=== PATIENT | female | born 1975 | race Caucasian/White ===

== ENCOUNTER 2024-11-13 10:27 | Emergency (ER) | payer SELFPAY ==
[2024-11-13] VITALS (10 sets, daily range): BP systolic 103–127; BP diastolic 73–82; PULSE 87–107; TEMP 37.1; O2SAT 91–95; BMI 26.6
--- NOTE | 2024-11-13 10:49 | ECG_ITS ---
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 Measurements Intervals [place] Rate: 109 P: 50 TX: 140 QRS: 35 QRSD: 84 T: 30 QT: 318 QTc: 382 Interpretive Statements 1120 Sinus tachycardia 1570 with occasional ventricular premature complexes 3113 Cannot rule out anterior myocardial infarction, probably old 9150 abnormal ECG Compared to ECG 11/13/2024 10:59:18 Ventricular premature complex(es) now present Myocardial infarct finding still present Electronically Signed On 11-13-2024 19:44:12 EDT by NIGEL CHARLES M.D.
--- NOTE | 2024-11-13 10:50 | ED.GENADUL1 ---
HPI HPI - General Adult General Chief complaint: Weakness Stated complaint: WEAKNESS LIGHTHEADED Time Seen by Provider: 11/13/24 10:41 Source: patient Mode of arrival: walk-in Limitations: no limitations History of Present Illness HPI narrative: 49-year-old female presents for weakness and slight cough and poor appetite. She has felt this way for about 5 days. She has not checked her temperature and is not coughing up any phlegm. She has not had much of an appetite and has not been drinking much fluids. She does not complain of any specific pain. Related Data Home Medications ?Medication ?Instructions ?Recorded ?Confirmed No Known Home Medications 11/13/24 11/13/24 Allergies Allergy/AdvReac Type Severity Reaction Status Date / Time No Known Drug Allergies Allergy Verified 11/13/24 12:12 Review of Systems ROS Narrative A ten point review of systems is negative except as noted above. PFSH PFSH Social History Little interest or pleasure in doing things: not at all Feeling down, depressed, or hopeless: not at all Exam Narrative Exam Narrative: Nurses note and vital signs reviewed and patient is not hypoxic. General: The patient appears in no apparent distress. Patient is resting comfortably on cart. Skin: Warm, dry, no pallor noted. There is no rash noted. Head: Normocephalic, atraumatic Eye: Normal conjunctiva, no drainage Ears, Nose, Mouth, and Throat: oral mucosa is moist. Nares patent. Cardiovascular: Regular Rate and Rhythm Respiratory: Patient is in no distress, no accessory muscle use, lungs are clear to auscultation, no wheezing, rales or rhonchi Back: non-tender GI: Soft and nontender Musculoskeletal: The patient has no evidence of calf tenderness, no pitting edema, symmetrical pulses noted bilaterally Neurological: A&O, normal speech. She has a tremor which she has had since childhood. Psychiatric: Cooperative Constitutional Vital Signs, click to edit/add: Last Vital Signs Temp 98.8 F 11/13/24 10:34 Pulse 87 11/13/24 13:03 Resp 18 11/13/24 13:03 BP 103/73 11/13/24 13:03 Pulse Ox 91 L 11/13/24 13:03 Course Vital Signs Vital signs: Vital Signs Temperature 98.8 F 11/13/24 10:34 Pulse Rate 100 H 11/13/24 10:34 Respiratory Rate 20 11/13/24 10:34 Blood Pressure 127/82 11/13/24 10:34 Pulse Oximetry 95 11/13/24 10:34 Temperature 98.8 F 11/13/24 10:34 Pulse Rate 87 11/13/24 13:03 Respiratory Rate 18 11/13/24 13:03 Blood Pressure 103/73 11/13/24 13:03 Pulse Oximetry 91 L 11/13/24 13:03 Medical Decision Making MDM Narrative Medical decision making narrative: Her workup indicates a large number of atypical lymphocytes and this has been sent off to be reviewed by pathology. I spoke to Dr. Espinal and at his request I have ordered flow cytometry and peripheral smear and LDH. She will follow-up with him on November 18 and she will call that office today to determine the time. Differential Diagnosis Differential Diagnosis: Dehydration, anemia, blood dyscrasia Lab Data Lab results reviewed: Yes I reviewed the patient's lab results Labs: Lab Results 11/13/24 11/13/24 11/13/24 Range/Units 11:05 11:07 11:53 WBC 13.8 H (4.0-11.0) 10^3/uL RBC 4.66 (4.20-5.40) 10^6/uL Hgb 14.6 (12.0-16.0) g/dL Hct 43.0 (36.0-48.0) % MCV 92.3 (81.0-99.0) fL MCH 31.3 (26.7-34.0) pg MCHC 34.0 (29.9-35.2) g/dL RDW 14.6 (11.0-15.0) % Plt Count 191 (150-450) 10^3/uL MPV 10.3 (9.5-13.5) fL Seg Neuts % (Manual) 34.0 L (43.0-75.0) Lymphocytes % (Manual) 31.0 (20.5-60.0) % Atypical Lymphs % (Man) 29.0 % Monocytes % (Manual) 4.0 (1.7-12.0) % Eosinophils % (Manual) 0.0 L (0.9-7.0) % Basophils % (Manual) 1.0 (0.2-2.0) % Neutrophils # (Manual) 4.69 (1.4-6.5) 10^3/uL Lymphocytes # (Manual) 4.27 H (1.20-3.80) 10^3/uL Abs Atypical Lymphs Man 4.00 Monocytes # (Manual) 0.55 (0.30-0.80) 10^3/uL Eosinophils # (Manual) 0.00 (0.00-0.70) 10^3/uL Basophils # (Manual) 0.13 H (0.00-0.10) 10^3/uL Differential Comment Smudge Cells Seen Sodium 135 L (136-145) mmol/L Potassium 3.5 (3.5-5.1) mmol/L Chloride 99 (98-107) mmol/L Carbon Dioxide 28.1 (21.0-32.0) mmol/L Anion Gap 11.4 BUN 11.0 (7.0-18.0) mg/dL Creatinine 1.06 H (0.55-1.02) mg/dL Est GFR ( Amer) >60 (>=60 mL/min/1.73m^2) Est GFR (Non-Af Amer) 55 L (>=60 mL/min/1.73m^2) BUN/Creatinine Ratio 10.4 Glucose 142 H (74-106) mg/dL Calcium 8.6 (8.5-10.1) mg/dL Urine Color Dk yellow (YELLOW) Urine Clarity Sl cloudy (CLEAR) Urine pH 6.0 (5.0-9.0) Ur Specific [place] 1.025 (1.005-1.025) Urine Protein 30 A (NEG/TRACE) mg/dL Urine Glucose (UA) Negative (NEGATIVE) mg/dL Urine Ketones Trace A (NEGATIVE) mg/dL Urine Occult Blood Negative (NEGATIVE) Urine Nitrite Negative (NEGATIVE) Urine Bilirubin Moderate A (NEGATIVE) Urine Urobilinogen 1.0 (0.2-1.0) EU/dL Ur Leukocyte Esterase Negative (NEGATIVE) Urine RBC 0-2 (0-2) #/HPF Urine WBC 0-2 A (NONE SEEN) #/HPF Ur Squamous Epith Cells Moderate A (NONE/RARE) #/LPF Urine Crystals None seen (None Seen) #/HPF Urine Bacteria Trace A (NONE SEEN) #/HPF Urine Casts Seen A (NONE SEEN) #/LPF Hyaline Casts Few Urine Mucus Moderate A (NONE SEEN) Influenza Type A Ag Negative Influenza Type B Ag Negative SARS-CoV-2 Ag (CV2AG) Negative (NEGATIVE) Imaging Data Chest x-ray: Radiologist's impression: No acute process ECG Data Attestation: I personally reviewed and interpreted this ECG as follows: (EKG on my interpretation shows sinus tachycardia with a rate of 109 and a PVC) Discharge Plan Discharge Chief Complaint: Weakness Clinical Impression: Generalized weakness Patient Disposition: Home, Self-Care Time of Disposition Decision: 13:29 Condition: Good Mode of Transportation: Private Vehicle Prescriptions / Home Meds: No Action No Known Home Medications Print Language: Kyrgyz Instructions: Weakness (ED) Additional Instructions: Call the office of Dr. Espinal today. He will see you on November 18. Referrals: Esther Espinal MD [Physician] - 11/18/24 Referral Note: Abnormal differential Clinical Impression: Generalized weakness Physician,Non-Staff, [Primary Care Provider] - 1 week
[2024-11-13] MEDS: ONDANSETRON PF 4 MG/2 ML VIAL IV (11:12)
[2024-11-13] MEDS: 0.9 % SODIUM CHLORIDE 1,000 ML 1000 ML IV (11:12)
[2024-11-13 11:25] LABS: Hemoglobin 14.6 g/dL (12.0-16.0); Mean Corpuscular Hemoglobin 31.3 pg (26.7-34.0); Mean Corpuscular Volume 92.3 fL (81.0-99.0); Mean Platelet Volume 10.3 fL (9.5-13.5); Platelet Count 191 10^3/uL (150-450); Red Blood Count 4.66 10^6/uL (4.20-5.40); Red Cell Distribution Width 14.6 % (11.0-15.0); White Blood Count 13.8 10^3/uL (4.0-11.0)
[2024-11-13 11:35] LABS: Influenza Virus A Antigen Negative; Influenza Virus B Antigen Negative; Internal Control Within Normal Limits; SARS-CoV-2 Ag NEGATIVE (NEGATIVE)
[2024-11-13 11:38] LABS: Anion Gap 11.4; BUN Creatinine Ratio 10.4; Calcium 8.6 mg/dL (8.5-10.1); Carbon Dioxide 28.1 mmol/L (21.0-32.0); Chloride 99 mmol/L (98-107); Estimated GFR (African America >60 (>=60 mL/min/1.73m^2); Estimated GFR (Non-African Ame 55 (>=60 mL/min/1.73m^2); Glucose 142 mg/dL (74-106); Potassium 3.5 mmol/L (3.5-5.1); Sodium 135 mmol/L (136-145)
[2024-11-13 12:03] LABS: Bilirubin Urine MODERATE (NEGATIVE); Blood Urine NEGATIVE (NEGATIVE); Clarity Urine SL CLOUDY (CLEAR); Glucose Urine UA NEGATIVE (NEGATIVE); Ketones Urine TRACE mg/dL (NEGATIVE); Leukocyte Esterase Urine NEGATIVE (NEGATIVE); Nitrite Urine NEGATIVE (NEGATIVE); Protein Urine 30 mg/dL (NEG/TRACE); Specific Gravity Urine 1.025 (1.005-1.025)
[2024-11-13 12:04] LABS: Lymphocytes Absolute Manual 4.27 10^3/uL (1.20-3.80); Monocytes Absolute Manual 0.55 10^3/uL (0.30-0.80); Segmented Neut Absolute Manual 4.69 10^3/uL (1.4-6.5)
[2024-11-13 12:05] LABS: Basophils Abs Manual 0.13 10^3/uL (0.00-0.10)
[2024-11-13 12:08] LABS: Smudge Cells SEEN
[2024-11-13 12:12] LABS: Color Urine DK YELLOW (YELLOW)
[2024-11-13 12:18] LABS: Cast Seen? SEEN #/LPF (NONE SEEN); Crystals Seen? None Seen #/HPF (None Seen); Hyaline Casts Urine FEW; RBC Urine 0-2 #/HPF (0-2); Squamous Epithelial Cell Urine MODERATE #/LPF (NONE/RARE); WBC Urine 0-2 #/HPF (NONE SEEN)
[2024-11-13 12:19] LABS: Mucus Urine MODERATE (NONE SEEN)
[2024-11-13 12:20] LABS: Bacteria Urine TRACE #/HPF (NONE SEEN)
[2024-11-13 13:41] LABS: Lactate Dehydrogenase 567 U/L (81-234)
== END 2024-11-13 13:41 | disposition home or self-care (01) ==
PROVIDERS: Emergency Provider Emergency Medicine
DX: R53.1 Weakness (principal)
CPT/HCPCS: 36415; 71045; 80048; 81001; 83615; 85007; 85027; 87804; 87811; 93005; 96374; 99285; 99999; J2405

== ENCOUNTER 2024-11-18 07:54 | Outpatient (RCR) | payer SELFPAY | END 2024-11-29 23:59 | disposition home or self-care (01) | LOC: HEMC 07:54 | PROVIDERS: Visit Provider Internal Medicine Hematology & Oncology | DX: D72.829 Elevated white blood cell count, unspecified (principal); D72.820 Lymphocytosis (symptomatic); D64.9 Anemia, unspecified; R74.8 Abnormal levels of other serum enzymes; R59.0 Localized enlarged lymph nodes; R94.5 Abnormal results of liver function studies; F17.210 Nicotine dependence, cigarettes, uncomplicated; Z90.49 Acquired absence of other specified parts of digestive tract; Z90.710 Acquired absence of both cervix and uterus; R25.1 Tremor, unspecified; R42 Dizziness and giddiness; R53.83 Other fatigue; E11.65 Type 2 diabetes mellitus with hyperglycemia | CPT/HCPCS: G0463 ==